=== PATIENT | male | born 2000 ===

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

== ENCOUNTER 2018-04-21 23:40 | Emergency (ER) | payer SELFPAY ==
[2018-04-21 23:41] VITALS: BMI 39.9
[2018-04-21 23:46] VITALS: BP 149/85; PULSE 70; RESP 18; TEMP 97.5; O2SAT 99
[2018-04-22] MEDS ORDERED: Naproxen 500 MG TAB PO STA (00:34)
[2018-04-22] MEDS ORDERED: Naproxen 500 MG TAB PO ONE (00:45)
--- NOTE | 2018-04-22 02:02 | ED PDOC ---
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 Reports no numbness, decrease in ROM, fever, other joint pain. Has no other complaints. Past Medical History Vital Signs: Last Vital Signs Temp 97.5 F L 04/21/18 23:44 Pulse 70 04/21/18 23:44 Resp 18 04/21/18 23:44 BP 149/85 04/21/18 23:44 Pulse Ox 99 04/21/18 23:44 - Medical History PMH: Asthma (childhood) Denies: HIV, Chronic Kidney Disease - Surgical History Surgical History: Tonsillectomy - Family History Family History: Denies: Unknown Family Hx - Home Medications Home Medications: Ambulatory Orders Medication Instructions Recorded Cephalexin [Keflex] 500 mg PO TID #21 cap 01/18/17 Tramadol HCl [Ultram] 50 mg PO Q4 PRN #20 tablet 01/18/17 Albuterol/Ipratropium [Duoneb 3 3 ml IH Q4 #30 neb 09/14/17 MG/3 Ml-0.5 MG/3 Ml 3 Ml] - Allergies Allergies/Adverse Reactions: Allergies Allergy/AdvReac Type Severity Reaction Status Date / Time No Known Allergies Allergy Verified 04/21/18 23:44 Review of Systems Constitutional: Negative for: Fever, Malaise Musculoskeletal: Positive for: Other (R knee pain). Negative for: Neck Pain, Back Pain, Foot Pain Skin: Negative for: Rash, Lesions Physical Exam - Physical Exam Appears: Positive for: Well, Non-toxic, No Acute Distress Head Exam: Positive for: ATRAUMATIC, NORMAL INSPECTION, NORMOCEPHALIC Skin: Positive for: Normal Color, Warm, Dry Pulses-Dorsalis Pedis (R): 2+ Extremity: Positive for: Normal ROM, Capillary Refill (< 2 sec), Other (R knee : +mild knee effusion, no tenderness, no edema, no laxity on varus/valgus stress test, no laxity on anterior/posterior drawer test, +FROM). 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 Negative for : Motor/Sensory Deficits - ECG O2 Sat by Pulse Oximetry: 99 Medical Decision Making Medical Decision Making: Plan : - XR R knee - Motrin PO XR R knee : no fracture, no dislocation, as read by PA. X-ray results discussed with the patient in great detail. Desean wrap and knee immobilizer applied. Advised to take otc motrin prn for pain. Rest, ice and elevate the joint. Return to the emergency room at any time for any new or worsening symptoms. Patient states he fully agrees with and understands discharge instructions. States that he agrees with the plan and disposition. Verbalized and repeated discharge instructions and plan. I have given the patient opportunity to ask any additional questions. Disposition - Clinical Impression Clinical Impression: Right knee sprain - Patient ED Disposition Is Patient to be Admitted: No Counseled Patient/Family Regarding: Studies Performed, Diagnosis, Need For Followup, Rx Given - Disposition Referrals: Jose Alberto Gaytan MD [Staff Provider] - Disposition: Routine/Home Disposition Time: 01:30 Condition: STABLE Additional Instructions: Thank you for letting us take care of you today. You were treated for right knee sprain. The emergency medical care you received today was directed at your acute symptoms. Rest, ice and elevate, wear desean wrap for comfort. Take over the counter motrn as needed for pain. It may take several days for your symptoms to resolve. Return to the Emergency Department if your symptoms worsen, do not improve, or if you have any other problems. Please contact your doctor in 2 days for re-evaluation and follow up / or call one of the physicians/clinics you have been referred to that are listed on the Patient Visit Information form that is included in your discharge packet. Bring any paperwork you were given at discharge with you along with any medications you are taking to your follow up visit. Our treatment cannot replace ongoing medical care by a primary care provider (PCP) outside of the emergency department. Thank you for allowing the [facility] team to be part of your care today. If you had an X-Ray : A Radiologist will review the ED reading if any change in treatment is needed we will contact you. Instructions: Knee Sprain (DC) Forms: [place] (Turkish), [facility] ED School/Work Excuse - PA / DIRECTOR OF PUBLICATIONS / Resident Statement MD/DO has reviewed & agrees with the documentation as recorded.
--- NOTE | 2018-04-22 08:31 | RAD ---
PROCEDURE: Right Knee Radiographs. HISTORY: pain COMPARISON: None. FINDINGS: BONES: No acute fracture or destructive bony lesion identified. JOINTS: Normal. No osteoarthritis. JOINT EFFUSION: None. OTHER FINDINGS: None. IMPRESSION: Normal radiographs of the right knee.
== END 2018-04-22 02:25 | disposition home or self-care (01) ==
LOC: H.ER 23:40
DX: S83.91XA Sprain of unspecified site of right knee, initial encounter (principal); X50.9XXA Other and unspecified overexertion or strenuous movements or postures, initial encounter; Y92.89 Other specified places as the place of occurrence of the external cause